=== PATIENT | male | born 1960 | race Caucasian/White ===

== ENCOUNTER 2017-07-08 16:15 | Emergency (ER) | payer OTHER ==
[~2017-07-08] VITALS: Ht 165.1 cm; Wt 65.8 kg
[~2017-07-08 16:15] MED LIST: AMOX1TAB61 PO; BUPR1FIL5 PO; CLON2TAB PO; HYDR-2678 PO; METH-37 PO; OLAN20TA3 PO; PRED20TA PO; QUET400T4 PO; RANI150T2 PO; SULF1TAB24 PO; TRAM-48 PO; VANC1.5P12 IV; Zantac; [UNRECOGNIZED DRUG - OTHER]; gabapentin; klonopin; seroquel; voltaren
[2017-07-08] MEDS ORDERED: IV NORMAL SALINE 1,000ML 1,000 ML IV ONE (16:45)
--- NOTE | 2017-07-08 16:55 | ED.ADGEN ---
Past History Past Medical History: Bipolar, Bronchitis, COPD, Diverticulitis, IBS, Schizophrenia Past Surgical History: Appendectomy, Other Alcohol Use: None Drug Use: None Adult General Chief Complaint Chief Complaint body aches, cough, chest pain HPI HPI Patient is a 57 year old male who presents with extensive intermittent cough, body aches, worsened over the last 3 days with fever of 101+. Patient did not receive a flu shot this year. Patient has not been seen by a doctor for these symptoms, he is not taking any medications at home. He's been laying around in his house, not working. History is primarily given by significant other as the patient is laying with his eyes closed and groaning but is able to listen and answers questions intermittently without distress. Review of Systems Review of Systems Constitutional: Reports fever Eyes: Denies change in visual acuity, redness, or eye pain [] HENT: Denies nasal congestion or sore throat [] Respiratory: rePorts cough Cardiovascular: Reports chest pain GI: Denies abdominal pain, nausea, vomiting, bloody stools or diarrhea [] : Denies dysuria or hematuria [] Musculoskeletal: Per history of present illness Integument: Denies rash or skin lesions [] Neurologic: Denies headache, focal weakness or sensory changes [] Current Medications Current Medications Current Medications Medications (Trade) Dose Ordered Sig/Inna Start Time Stop Time Status Last Admin Dose Admin Sodium Chloride 1,000 ml @ 1,000 mls/hr 1X ONCE 07/08/17 16:45 07/08/17 17:44 07/08/17 16:45 1,000 MLS/HR Allergies Allergies Allergies Coded Allergies Type Severity Reaction Last Updated Verified benztropine Allergy Severe sob 04/16/16 Yes olanzapine Allergy Severe sob 04/13/16 Yes quetiapine Allergy Severe sob 04/13/16 Yes haloperidol Allergy Intermediate 01/23/16 Yes hydromorphone Allergy Intermediate 01/23/16 Yes ziprasidone Allergy Intermediate 01/23/16 Yes zolpidem Allergy Intermediate 01/23/16 Yes I S O L A T I O N *CONTACT* Allergy Unknown 04/15/16 Yes Physical Exam Physical Exam Constitutional: Well developed, well nourished, ill appearing, non-toxic appearance. HENT: Normocephalic, atraumatic, bilateral external ears normal, oropharynx moist, no oral exudates, nose normal. [] Eyes: PERRLA, EOMI, conjunctiva normal, no discharge. [] Neck: Normal range of motion, no tenderness, supple, no stridor. [] Cardiovascular:Heart rate regular with regular rhythm, no murmur [] Lungs & Thorax: Bilateral breath sounds clear to auscultation, no wheeze, crackles or rhonchi Abdomen: Bowel sounds normal, soft, no tenderness, no masses, no pulsatile masses. [] Skin: Warm, dry, no rash. [] Back: No tenderness, no CVA tenderness. [] Extremities: No tenderness, no cyanosis, no clubbing, ROM intact, no edema. [] Neurologic: Alert and oriented X 3, normal motor function, normal sensory function, no focal deficits noted. [] Current Patient Data Vital Signs Vital Signs Date Time Temp Pulse Resp B/P (MAP) Pulse Ox O2 Delivery O2 Flow Rate FiO2 07/08/17 16:37 97.8 83 20 98 Room Air Lab Results Laboratory Tests Test 07/08/17 16:51 White Blood Count 14.2 x10^3/uL (4.0-11.0) H Red Blood Count 4.31 x10^6/uL (4.30-5.70) Hemoglobin 13.3 g/dL (13.0-17.5) Hematocrit 37.9 % (39.0-53.0) L Mean Corpuscular Volume 88 fL (79-100) Mean Corpuscular Hemoglobin 31 pg (25-35) Mean Corpuscular Hemoglobin Concent 35 g/dL (31-37) Red Cell Distribution Width 12.8 % (11.5-14.5) Platelet Count 227 x10^3/uL (140-400) Neutrophils (%) (Auto) 80 % (31-73) H Lymphocytes (%) (Auto) 12 % (24-48) L Monocytes (%) (Auto) 8 % (0-9) Eosinophils (%) (Auto) 0 % (0-3) Basophils (%) (Auto) 0 % (0-3) Neutrophils # (Auto) 11.4 x10^3uL (1.8-7.7) H Lymphocytes # (Auto) 1.7 x10^3/uL (1.0-4.8) Monocytes # (Auto) 1.1 x10^3/uL (0.0-1.1) Eosinophils # (Auto) 0.0 x10^3/uL (0.0-0.7) Basophils # (Auto) 0.0 x10^3/uL (0.0-0.2) Sodium Level 133 mmol/L (136-145) L Potassium Level 3.6 mmol/L (3.5-5.1) Chloride Level 97 mmol/L (98-107) L Carbon Dioxide Level 25 mmol/L (21-32) Anion Gap 11 (6-14) Blood Urea Nitrogen 4 mg/dL (8-26) L Creatinine 0.7 mg/dL (0.7-1.3) Estimated GFR (Cockcroft-Gault) 116.2 BUN/Creatinine Ratio 6 (6-20) Glucose Level 97 mg/dL (70-99) Calcium Level 8.7 mg/dL (8.5-10.1) Total Bilirubin 0.6 mg/dL (0.2-1.0) Aspartate Amino Transferase (AST) 27 U/L (15-37) Alanine Aminotransferase (ALT) 28 U/L (16-63) Alkaline Phosphatase 61 U/L (46-116) Troponin I Quantitative < 0.017 ng/mL (0-0.055) Total Protein 7.3 g/dL (6.4-8.2) Albumin 3.4 g/dL (3.4-5.0) Albumin/Globulin Ratio 0.9 (1.0-1.7) L Influenza Type A (Rapid) Negative (NEGATIVE) Influenza Type B (Rapid) Negative (NEGATIVE) EKG EKG 1655: 75 bpm, sinus, normal axis, normal intervals, no ST elevation or depression, nonischemic T waves, interpreted by me[] Radiology/Procedures Radiology/Procedures CXR 1 view: linear opacities, normal cardiac, no effusion, no bony abnormalities , interpreted by me.[] Course & Med Decision Making Course & Med Decision Making Pertinent Labs and Imaging studies reviewed. (See chart for details) Patient given IV fluids, labs, chest x-ray ordered. Labs show mild leukocytosis, no significant other abnormalities. Recommend treatment for atypical pneumonia with z-pack. Recommend fluids, close f/u with PCP, strict return precautions. Final Impression Final Impression Atypical pneumonia[] Problems: Dragon Disclaimer Dragon Disclaimer This electronic medical record was generated, in whole or in part, using a voice recognition dictation system. KEVIN LOUIS MD Jul 08, 2017 16:55
--- NOTE | 2017-07-08 17:07 | EKG ---
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
[2017-07-08 17:17] LABS: BASO % 0 % (0-3); EOS % 0 % (0-3); HEMATOCRIT 37.9 % (39.0-53.0); HEMOGLOBIN 13.3 g/dL (13.0-17.5); LYMPH # 1.7 x10^3/uL (1.0-4.8); LYMPH % 12 % (24-48); MEAN CORPUSCULAR HEMOGLOBIN 31 pg (25-35); MEAN CORPUSCULAR HGB CONC 35 g/dL (31-37); MEAN CORPUSCULAR VOLUME 88 fL (79-100); MONO # 1.1 x10^3/uL (0.0-1.1); MONO % 8 % (0-9); NEUT # 11.4 x10^3uL (1.8-7.7); NEUT % 80 % (31-73); PLATELET COUNT 227 x10^3/uL (140-400); RED BLOOD COUNT 4.31 x10^6/uL (4.30-5.70); RED CELL DISTRIBUTION WIDTH 12.8 % (11.5-14.5); WHITE BLOOD COUNT 14.2 x10^3/uL (4.0-11.0)
[2017-07-08 17:32] LABS: ALBUMIN 3.4 g/dL (3.4-5.0); ALBUMIN/GLOBULIN RATIO 0.9 (1.0-1.7); CALCIUM 8.7 mg/dL (8.5-10.1); CREATININE 0.7 mg/dL (0.7-1.3); GFR 116.2; POTASSIUM 3.6 mmol/L (3.5-5.1); TOTAL BILIRUBIN 0.6 mg/dL (0.2-1.0); TOTAL PROTEIN 7.3 g/dL (6.4-8.2)
[2017-07-08 17:33] LABS: INFLUENZA A PATIENT NEGATIVE (NEGATIVE); INFLUENZA B PATIENT NEGATIVE (NEGATIVE)
[2017-07-08] MEDS ORDERED: AZIT250T PO (17:41)
[2017-07-08] MEDS ORDERED: IBUP800T19 PO (17:41)
[2017-07-08 17:57] VITALS: BP 119/70
--- NOTE | 2017-07-09 09:54 | RAD ---
Indication: Cough and flulike symptoms. Technique: Portable AP upright chest x-ray Comparison: None Findings: Heart is normal in size. Bilateral central perihilar linear opacities noted. No focal consolidation. No pneumothorax or effusion. Visualized bony thorax within normal limits Findings: Findings may suggest bronchitis in right clinical setting.
== END 2017-07-08 17:59 | disposition home or self-care (01) ==
LOC: ER 16:15
DX: J18.8 Other pneumonia, unspecified organism (principal); J44.9 Chronic obstructive pulmonary disease, unspecified; F20.9 Schizophrenia, unspecified; K58.9 Irritable bowel syndrome, unspecified; F31.9 Bipolar disorder, unspecified; Z88.8 Allergy status to other drugs, medicaments and biological substances; Z91.041 Radiographic dye allergy status; Z88.5 Allergy status to narcotic agent
CPT/HCPCS: 36415; 71045; 80053; 84484; 85025; 87804; 93005; 96360; 99285-25; J7030

== ENCOUNTER 2017-07-12 12:30 | Emergency (ER) | payer MEDICARE, OTHER ==
[~2017-07-12] VITALS: Ht 162.6 cm; Wt 65.8 kg
[~2017-07-12 12:30] MED LIST changes: +AZIT250T PO; +IBUP800T19 PO
[2017-07-12 12:47] VITALS: BP 106/68
[2017-07-12] MEDS ORDERED: PRED20TA PO (13:14)
[2017-07-12] MEDS ORDERED: GUAI118L13 PO (13:14)
[2017-07-12] MEDS ORDERED: ALBU18HF IH (13:14)
--- NOTE | 2017-07-12 13:16 | PHYS DOC ---
General Chief Complaint: rib pain Stated Complaint: FEVER/SIDE PAIN Time Seen by MD: 12:31 Source: patient Exam Limitations: no limitations Problems: History of Present Illness Initial Comments Patient is a 57-year-old male who returns to the emergency department complaining of cough and left-sided rib pain. Patient was seen here 4 days ago for similar symptoms chest x-ray was unremarkable and the patient was placed on a Z-Rocky for atypical pneumonia. Influenza testing negative. Patient states that he's had a persistent cough shortness of breath, states he's had some chills and sweats but no measured fevers. No Tylenol or ibuprofen since early this morning on ED arrival patient is afebrile and satting 99% on room air. He also states he has a history of COPD but currently uses no aerosol treatments. Patient's primary complaint today is left lower rib pain. Patient points to his left costal margin and states the pain radiates from front to back and is worse with deep breaths and coughing as well as certain movements better with rest. He denies any trauma and on reevaluation no rashes present. ED vitals: 97.5, 96, 22, 106/68, 99% room air Timing/Duration: other Severity: severe Modifying Factors: worse with movement, improves with rest Associated Symptoms: cough, fever/chills, other Allergies: Coded Allergies: benztropine (Verified Allergy, Severe, sob, 04/16/16) olanzapine (Verified Allergy, Severe, sob, 04/13/16) quetiapine (Verified Allergy, Severe, sob, 04/13/16) haloperidol (Verified Allergy, Intermediate, 01/23/16) hydromorphone (Verified Allergy, Intermediate, 01/23/16) ziprasidone (Verified Allergy, Intermediate, 01/23/16) zolpidem (Verified Allergy, Intermediate, 01/23/16) I S O L A T I O N *CONTACT* (Verified Allergy, Unknown, 04/15/16) +MRSA nasal screen 04-13-16 Past Medical History Medical History: other (bipolar disorder, polysubstance abuse, anxiety, tobaccoism, diverticulitis, small bowel obstruction, liver laceration, COPD, schizophrenia) Surgical History: appendectomy Social History Smoker: less than 1 pack/day Alcohol: none Drugs: other (remote history of polysubstance abuse) Review of Systems Constitutional: see HPI Respiratory: see HPI, denies shortness of breath Cardiovascular: denies chest pain, denies edema, denies palpitations, denies syncope Gastrointestinal: denies abdominal pain, denies nausea, denies vomiting Musculoskeletal: see HPI Psychiatric/Neurological: see HPI, denies headache Hematologic/Lymphatic: denies blood clots, denies easy bleeding, denies easy bruising Physical Exam General Appearance: no apparent distress (disheveled, appears older than stated age) Eyes: bilateral eye normal inspection, bilateral eye PERRL, bilateral eye EOMI Ear, Nose, Throat: hearing grossly normal, normal pharynx Neck: non-tender, supple Respiratory: wheezing (faint diffuse with good air movement no respiratory distress), other (tenderness elicited along the left costal margin reproducing chief complaint, no swelling ecchymosis or rash no bony tenderness or palpable bony deformity.) Cardiovascular: normal peripheral pulses, regular rate, rhythm Gastrointestinal: non tender, soft Back: no CVA tenderness, no vertebral tenderness Extremities: non-tender, normal inspection, no pedal edema 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 I discussed onset of action of Zithromax, discussed COPD and smoking cessation. Discussed signs and symptoms to monitor as well as indications for urgent return to the department. Patient's questions were answered to his satisfaction and he expressed agreement and understanding of treatment plan. Departure Time of Disposition: 13:14 Disposition: 01 HOME, SELF-CARE Diagnosis: COPD Exac, bronchitis, chest wall pain Condition: GOOD Patient Instructions: Chest Wall Pain, [id number] Additional Instructions: Continue taking Zithromax. [id number] Tylenol and ibuprofen as needed. Prescription: Prednisone, albuterol MDI, guaifenesin with codeine syrup 80 MLs Follow-up with your doctor in 5-7 days if no improvement. Return to ED with new or changing symptoms. KERRI REDMOND DO Jul 12, 2017 13:16
== END 2017-07-12 13:25 | disposition home or self-care (01) ==
LOC: ER 12:30
DX: J44.0 Chronic obstructive pulmonary disease with (acute) lower respiratory infection (principal); J44.1 Chronic obstructive pulmonary disease with (acute) exacerbation; J20.8 Acute bronchitis due to other specified organisms; R07.81 Pleurodynia; F17.210 Nicotine dependence, cigarettes, uncomplicated; F20.9 Schizophrenia, unspecified; F31.9 Bipolar disorder, unspecified; F41.9 Anxiety disorder, unspecified; F19.10 Other psychoactive substance abuse, uncomplicated; Z88.8 Allergy status to other drugs, medicaments and biological substances; Z91.041 Radiographic dye allergy status; Z88.5 Allergy status to narcotic agent
CPT/HCPCS: 99283

== ENCOUNTER → 2017-07-27 | Outpatient (CLI) | payer MEDICARE, OTHER ==
[2017-07-12 12:47] VITALS: BP 106/68
[~2017-07-27] MED LIST changes: +ALBU18HF IH; +CONTRAST GIVEN MC PRN; +GUAI118L13 PO; +IOHEXOL 300 MG/ML 75 ML VIAL. IV ONE
--- NOTE | 2017-07-27 10:44 | RAD ---
CT of the chest with and without contrast, 07/27/2017: History: Lung mass, shortness of breath, left chest pain Multidetector imaging was performed prior to and following an IV bolus injection of iodinated contrast material as requested. There is an elongated peripheral opacity in the posterior aspect of the left upper lobe abutting the superior aspect of the oblique fissure. On coronal image 68 of series #6 it measures approximate 5.0 x 2.2 x 2.2 cm. Its margins are irregular. Patent bronchi are seen along the margins of the mass but not centrally. It demonstrates heterogeneous internal enhancement with a small lower density component present centrally. There is mild dependent atelectasis in both lungs. There are several scattered linear opacities in both lungs compatible with scars. A calcified granuloma is present in the right upper lobe. Minimal bilateral apical densities are compatible with pleural based parenchymal scarring. No pleural fluid is evident. The thoracic aorta is unremarkable. A couple of faint coronary artery calcifications are noted. There are calcified mediastinal and right hilar lymph nodes compatible with old granulomatous disease. No hilar or mediastinal adenopathy is evident. There are surgical clips in the upper abdomen. IMPRESSION: 1. Peripheral left upper lobe pulmonary mass with diagnostic considerations including a focus of pneumonitis, a pulmonary malignancy, or less likely a pulmonary infarct. 2. Mild bilateral pleural-parenchymal scarring. PQRS Compliance Statement: One or more of the following individualized dose reduction techniques were utilized for this examination: 1. Automated exposure control 2. Adjustment of the mA and/or kV according to patient size 3. Use of iterative reconstruction technique
== END | disposition home or self-care (01) ==
LOC: CT 08:57
PROVIDERS: ATTEND Family Medicine
DX: J44.1 Chronic obstructive pulmonary disease with (acute) exacerbation (principal); J98.11 Atelectasis; I25.10 Atherosclerotic heart disease of native coronary artery without angina pectoris; R91.8 Other nonspecific abnormal finding of lung field
CPT/HCPCS: 71270; Q9967

== ENCOUNTER 2017-07-29 22:07 | Emergency (ER) | payer MEDICARE ==
[~2017-07-29] VITALS: Ht 162.6 cm; Wt 68.0 kg
[~2017-07-29 22:07] MED LIST changes: -CONTRAST GIVEN MC PRN; -IOHEXOL 300 MG/ML 75 ML VIAL. IV ONE
[2017-07-29] MEDS ORDERED: LORazepam 2 MG/ML VIAL IV ONE (23:00)
[2017-07-29] MEDS ORDERED: ACETAMINOPHEN 500 MG TABLET PO ONE (23:00)
[2017-07-29] MEDS ORDERED: IOHEXOL 300 MG/ML 75 ML VIAL. IV ONE (23:00)
[2017-07-29] MEDS ORDERED: IV NORMAL SALINE 1,000ML 1,000 ML IV SCH (23:00)
[2017-07-29] MEDS ORDERED: ASPIRIN 81 MG TAB.CHEW PO ONE (23:00)
[2017-07-29 23:24] LABS: BASO # 0.1 x10^3/uL (0.0-0.2); BASO % 1 % (0-3); EOS # 0.1 x10^3/uL (0.0-0.7); EOS % 1 % (0-3); HEMATOCRIT 40.5 % (39.0-53.0); HEMOGLOBIN 13.8 g/dL (13.0-17.5); LYMPH # 1.6 x10^3/uL (1.0-4.8); LYMPH % 19 % (24-48); MEAN CORPUSCULAR HEMOGLOBIN 31 pg (25-35); MEAN CORPUSCULAR HGB CONC 34 g/dL (31-37); MEAN CORPUSCULAR VOLUME 90 fL (79-100); MONO # 0.9 x10^3/uL (0.0-1.1); MONO % 11 % (0-9); NEUT # 5.8 x10^3uL (1.8-7.7); NEUT % 69 % (31-73); PLATELET COUNT 244 x10^3/uL (140-400); RED BLOOD COUNT 4.52 x10^6/uL (4.30-5.70); RED CELL DISTRIBUTION WIDTH 14.6 % (11.5-14.5); WHITE BLOOD COUNT 8.4 x10^3/uL (4.0-11.0)
[2017-07-29 23:34] LABS: ALBUMIN 2.8 g/dL (3.4-5.0); ALBUMIN/GLOBULIN RATIO 0.7 (1.0-1.7); CALCIUM 8.2 mg/dL (8.5-10.1); CREATININE 0.8 mg/dL (0.7-1.3); GFR 99.6; POTASSIUM 4.1 mmol/L (3.5-5.1); TOTAL BILIRUBIN 0.2 mg/dL (0.2-1.0); TOTAL PROTEIN 6.9 g/dL (6.4-8.2)
[2017-07-29 23:39] LABS: BACTERIA,URINE FEW /HPF (0-FEW); BILIRUBIN,URINE NEG (NEG); CLARITY,URINE HAZY; COLOR,URINE YELLOW; GLUCOSE,URINE NEG (NEG); NITRITE,URINE NEG (NEG); UROBILINOGEN,URINE 0.2 mg/dL (0.2 mg/dL); WBC,URINE 0 /HPF (0-4)
--- NOTE | 2017-07-29 23:39 | PHYS DOC ---
General Chief Complaint: SHORTNESS OF BREATH Stated Complaint: FEVER,OXYGEN LEVEL PROBLEMS,DIFF BREATHING Time Seen by MD: 22:18 Source: patient, old records Exam Limitations: intoxication Problems: History of Present Illness Initial Comments 57-year-old male brought to the ED by his for fever and cough. states that the patient was recently diagnosed with pneumonia and is on " an antibiotic" and prednisone. She states that today he developed fever and chills symptoms appeared to worsen. Patient complains of cough and body aches and nasal congestion, states that he' s had these symptoms for the past 9 months and no one will help him. On arrival his speech is garbled and he appears to be altered on and intoxicating substance , he is inconsolable and very anxious and demanding pain control. Febrile on arrival with intermittent elevated heart rate with agitation no hypoxia or respiratory distress noted. Copious amounts of green nasal discharge noted no chest pain nausea vomiting. Patient had CTA of the chest 2 days ago revealing pneumonitis versus mass versus infarct. Patient has history of substance abuse, admits to taking methadone prior to arrival states that he hasn't had a prescribed to him for several months but he found some leftover he took for his discomfort. Timing/Duration: other Severity: severe Modifying Factors: improves with other Associated Symptoms: cough, diaphoresis, fever/chills, malaise, other Allergies: Coded Allergies: benztropine (Verified Allergy, Severe, sob, 04/16/16) olanzapine (Verified Allergy, Severe, sob, 04/13/16) quetiapine (Verified Allergy, Severe, sob, 04/13/16) haloperidol (Verified Allergy, Intermediate, 01/23/16) hydromorphone (Verified Allergy, Intermediate, 01/23/16) ziprasidone (Verified Allergy, Intermediate, 01/23/16) zolpidem (Verified Allergy, Intermediate, 01/23/16) I S O L A T I O N *CONTACT* (Verified Allergy, Unknown, 04/15/16) +MRSA nasal screen 04-13-16 Past Medical History Medical History: other (anxiety, bipolar, substance abuse, diverticulitis, small bowel obstruction, liver laceration) Surgical History: appendectomy, other Social History Smoker: cigarettes Alcohol: none Drugs: marijuana, other (opiates) Review of Systems Constitutional: see HPI EENTM: denies ear pain, nose congestion, denies throat pain Respiratory: cough, denies shortness of breath, wheezing Cardiovascular: denies chest pain, denies palpitations, denies syncope Gastrointestinal: denies abdominal pain, denies nausea, denies vomiting Musculoskeletal: back pain, denies joint swelling, muscle pain, denies neck pain Psychiatric/Neurological: see HPI, denies headache, denies numbness, denies paresthesia Hematologic/Lymphatic: denies blood clots, denies easy bleeding, denies easy bruising Physical Exam General Appearance: severe distress (anxious complaining of severe pain, appears altered medication.) Eyes: bilateral eye PERRL, bilateral eye EOMI, bilateral eye other ( conjunctivae injected bilaterally) Ear, Nose, Throat: other (thick green nasal discharge, green postnasal drip airway patent TMs normal) Neck: non-tender, full range of motion, supple Respiratory: other (decreased to the left upper lung field with faint diffuse wheezes bilaterally no respiratory distress chest nontender) Cardiovascular: normal peripheral pulses, tachycardia Gastrointestinal: non tender, soft Back: no CVA tenderness, no vertebral tenderness Extremities: non-tender, normal inspection 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 Interpreted by me. PATIENT: AMBROSIO LEACH ACCOUNT: [id number] : 1960 LOCATION: ER AGE: 57 SEX: M EXAM STATUS: REG ER ORD. PHYSICIAN: KERRI REDMOND DO REASON: cp, thoracic pain, tachycardia PROCEDURE: CT ANGIOGRAPHY CHEST CTA chest with contrast 07/29/2017 Clinical indication: Chest pain, tachycardia, shortness of breath. COMPARISON: CT chest 07/27/2017 TECHNIQUE: Multiple CTA images of the chest were obtained following the intravenous administration of Omnipaque 300. MIPS were obtained of the chest. *One or more of the following individualized dose reduction techniques were utilized for this examination: 1. Automated exposure control. 2. Adjustment of the mA and/or kV according to patient size. 3. Use of iterative reconstruction technique. FINDINGS: Heart size is normal without significant pericardial effusion. The thoracic aorta is normal in caliber. No central or major segmental pulmonary arterial filling defect. No axillary or left hilar lymphadenopathy. There is mild mediastinal and right hilar lymphadenopathy. Heel Edge Inker Machine subcarinal lymph node measures 1.4 cm short axis series 4/image 68. Heel Edge Inker Machine right hilar lymph node measures 1.7 cm series 4/image 80. There is layering retained or aspirated secretions in the lower trachea, right main stem bronchus with bilateral peribronchial and bronchiolar thickening. Mild centrilobular and paraseptal emphysema. No significant change in irregular masslike consolidation posterior left upper lobe with broad-based abutment to the major fissure measuring 3.6 x 2.0 cm series 4/image 40. Interval increase in the internal cavitary component. There is a stable subpleural noncalcified nodule in the lateral right lower lobe measuring 0.5 cm series 4/image 93. There is mild dependent atelectasis in both lungs. No pleural effusion or pneumothorax. There are no destructive osseous lesions. Limited images of the upper abdomen: Grossly unremarkable. IMPRESSION: 1. No CT evidence of pulmonary embolism. 2. Unchanged left upper lobe irregular masslike consolidation with internal cavitation. Findings may represent pneumonia with a cavitary component, however atypical etiologies including tuberculosis cannot be excluded. Malignancy also must be excluded. 3. Peribronchial and bronchiolar thickening, suggestive of bronchitis. 4. Mild emphysema. 5. Stable right lung 0.5 cm noncalcified pulmonary nodule. Follow-up CT chest is recommended. 6. Mild thoracic lymphadenopathy, indeterminate. This could be followed with the above finding. These results were discussed with Dr. Redmond of the emergency service by telephone at 12:30 AM 07/30/[address] Sancho Warner. Electronically signed by: Sancho Warner MD (07/30/2017 12:32 AM) [facility] DICTATED AND SIGNED BY: SANCHO WARNER MD DATE: 07/30/17 0017 CC: MARIBELL DUPONT MD; KERRI REDMOND DO ~ No leukocytosis, influenza B positive, urinalysis with hematuria, drug screen positive for methadone marijuana and benzodiazepines Heart rate improved normal rate almost immediately with benzodiazepine, vitals otherwise remained stable throughout ED course. Clarified with patient, no codeine allergy Patient apologetic to nursing staff for behavior and profanity on arrival, no longer anxious and feeling reassured. I discussed influenza B, abnormal CT findings including possible malignancy and tuberculosis with the patient. Denies night sweats/weight loss, states he's had negative PPD testing in past. He initially denied any recent methadone use however when confronted with drug screen result states that he found some he had been prescribed months ago and took it for today severe symptoms. I discussed the need for follow-up on Tuesday for PPD resolved as well as to discuss outpatient pulmonology evaluation for possible malignancy versus tuberculosis. Discussed signs and symptoms to monitor as well as indications for urgent return to the department. His questions were answered, and given the benefit of the doubt in addition to Tamiflu 120 mL of cough medicine with codeine prescription given as well. Impressions: Influenza B Abnormal CT as above History of polysubstance abuse Current treatment for possible pneumonia Departure Time of Disposition: 00:48 Disposition: 01 HOME, SELF-CARE Diagnosis: Influenza B, Abnormal CT, hematuria Condition: IMPROVED Patient Instructions: Influenza, Adult, [id number] Additional Instructions: Please review the patient education materials. Continue current meds. As discussed and previously known, you have and abnormal cat scan of your chest which needs follow up due to possibility of malignancy or tuberculosis. Aggressive hydration with gatorade, water. OTC tylenol and ibuprofen. Rx: Tamiflu, guaifenesin/codeine syrup A tuberculosis skin test was performed tonight, follow up with your doctor on Tuesday to review and to discuss possible further outpatient pulmonology evaluation. Discontinue marijuana abuse. Return to ED with new or changing symptoms. KERRI REDMOND DO Jul 29, 2017 23:39
[2017-07-29 23:40] LABS: SQUAMOUS EPITHELIAL CELL,UR MOD /LPF
[2017-07-29 23:42] LABS: INFLUENZA A PATIENT NEGATIVE (NEGATIVE); INFLUENZA B PATIENT POSITIVE (NEGATIVE)
[2017-07-29 23:48] LABS: BARBITURATES NEG (NEG); BENZODIAZEPINES POS (NEG); CANNABINOIDS POS (NEG); COCAINE NEG (NEG); METHADONE POS (NEG); OPIATES NEG (NEG); PHENCYCLIDINE NEG (NEG)
[2017-07-29 23:50] LABS: AMPHETAMINE/METHAMPHETAMINE NEG (NEG)
[2017-07-30] MEDS ORDERED: OSELTAMIVIR 75 MG CAPSULE PO ONE
--- NOTE | 2017-07-30 00:35 | RAD ---
CTA chest with contrast 07/29/2017 Clinical indication: Chest pain, tachycardia, shortness of breath. COMPARISON: CT chest 07/27/2017 TECHNIQUE: Multiple CTA images of the chest were obtained following the intravenous administration of Omnipaque 300. MIPS were obtained of the chest. *One or more of the following individualized dose reduction techniques were utilized for this examination: 1. Automated exposure control. 2. Adjustment of the mA and/or kV according to patient size. 3. Use of iterative reconstruction technique. FINDINGS: Heart size is normal without significant pericardial effusion. The thoracic aorta is normal in caliber. No central or major segmental pulmonary arterial filling defect. No axillary or left hilar lymphadenopathy. There is mild mediastinal and right hilar lymphadenopathy. Communications Systems Engineer subcarinal lymph node measures 1.4 cm short axis series 4/image 68. Communications Systems Engineer right hilar lymph node measures 1.7 cm series 4/image 80. There is layering retained or aspirated secretions in the lower trachea, right main stem bronchus with bilateral peribronchial and bronchiolar thickening. Mild centrilobular and paraseptal emphysema. No significant change in irregular masslike consolidation posterior left upper lobe with broad-based abutment to the major fissure measuring 3.6 x 2.0 cm series 4/image 40. Interval increase in the internal cavitary component. There is a stable subpleural noncalcified nodule in the lateral right lower lobe measuring 0.5 cm series 4/image 93. There is mild dependent atelectasis in both lungs. No pleural effusion or pneumothorax. There are no destructive osseous lesions. Limited images of the upper abdomen: Grossly unremarkable. IMPRESSION: 1. No CT evidence of pulmonary embolism. 2. Unchanged left upper lobe irregular masslike consolidation with internal cavitation. Findings may represent pneumonia with a cavitary component, however atypical etiologies including tuberculosis cannot be excluded. Malignancy also must be excluded. 3. Peribronchial and bronchiolar thickening, suggestive of bronchitis. 4. Mild emphysema. 5. Stable right lung 0.5 cm noncalcified pulmonary nodule. Follow-up CT chest is recommended. 6. Mild thoracic lymphadenopathy, indeterminate. This could be followed with the above finding. These results were discussed with Dr. Mijares of the emergency service by telephone at 12:30 AM 07/30/[address] Felice aWrner. Electronically signed by: Felice Warner MD (07/30/2017 12:32 AM) [place] [id number]
[2017-07-30] MEDS ORDERED: OSEL75CA PO (00:54)
[2017-07-30] MEDS ORDERED: guaiFENesin/CODEINE 100mg/10mg 5 ML LIQUID PO ONE (01:00)
[2017-07-30] MEDS ORDERED: GUAI118L13 PO (01:02)
[2017-07-30] MEDS ORDERED: TUBERCULIN PPD 5TUB.UNIT 0.1 ML TEST. ID ONE (03:00)
[2017-07-30 04:30] VITALS: BP 106/65
--- NOTE | 2017-07-30 06:10 | EKG ---
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
== END 2017-07-30 04:40 | disposition home or self-care (01) ==
LOC: ER 22:07
DX: J10.1 Influenza due to other identified influenza virus with other respiratory manifestations (principal); R93.1 Abnormal findings on diagnostic imaging of heart and coronary circulation; R31.9 Hematuria, unspecified; F41.9 Anxiety disorder, unspecified; J43.9 Emphysema, unspecified; F31.9 Bipolar disorder, unspecified; F17.210 Nicotine dependence, cigarettes, uncomplicated; F12.10 Cannabis abuse, uncomplicated; F11.10 Opioid abuse, uncomplicated; Z88.5 Allergy status to narcotic agent; Z88.8 Allergy status to other drugs, medicaments and biological substances; Z91.041 Radiographic dye allergy status
CPT/HCPCS: 36415; 71275; 80053; 80307; 81001; 82550; 83605; 84484; 85025; 85379; 87040; 87804; 93005; 96361; 96374; 99285; G0480; J2060; Q9967; 96360; G0479; J7030

== ENCOUNTER 2017-07-30 19:15 | Emergency (ER) | payer MEDICARE ==
[~2017-07-30] VITALS: Ht 162.6 cm; Wt 68.0 kg
[~2017-07-30 19:15] MED LIST changes: +OSEL75CA PO
[2017-07-30] MEDS ORDERED: ALBUTEROL SULFATE 2.5 MG/3 ML NEBU. NEB ONE (21:15)
[2017-07-30] MEDS ORDERED: IV NORMAL SALINE 1,000ML 1,000 ML IV SCH (21:15)
[2017-07-30] MEDS ORDERED: MORPHINE SULFATE 4 MG/ML DISP.SYRIN. IV/SQ PRN (21:15)
[2017-07-30 23:01] VITALS: BP 115/93
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
== END 2017-07-31 | disposition home or self-care (01) ==
LOC: ER 19:58
DX: J10.1 Influenza due to other identified influenza virus with other respiratory manifestations (principal); E86.1 Hypovolemia; F41.9 Anxiety disorder, unspecified; F31.9 Bipolar disorder, unspecified; F19.10 Other psychoactive substance abuse, uncomplicated; F17.210 Nicotine dependence, cigarettes, uncomplicated; F12.10 Cannabis abuse, uncomplicated; F11.10 Opioid abuse, uncomplicated; Z88.5 Allergy status to narcotic agent; Z88.8 Allergy status to other drugs, medicaments and biological substances; Z91.041 Radiographic dye allergy status
CPT/HCPCS: 94640; 96361; 96374; 99285; J2270; J7613; J7030

== ENCOUNTER → 2017-09-12 | Outpatient (CLI) | payer MEDICARE ==
--- NOTE | 2017-09-12 16:36 | RAD ---
CT of the chest without contrast, 09/12/2017: History: Follow-up infiltrate Noncontrast scans were obtained as requested. Comparison is made to a study from 07/29/2017. Previously seen dense infiltrate in the posterior aspect of the left upper lobe has partially cleared. There are only mild residual streaky opacities in this region. The appearance is compatible with resolving pneumonia. There are mild streaky opacities medially in the right middle lobe which are unchanged and are likely due to scarring. There is also minimal linear atelectasis or scarring in the lingula on the left. A calcified granuloma is present in the right upper lobe. A small peripheral triangular shaped subpleural opacity is again noted laterally in the right lower lobe on image 83 of series #2. This measures approximately 5 mm and is unchanged. There are a few other scattered linear parenchymal scars including in the apices. No new pulmonary consolidation is seen. There is no evidence of pleural fluid. There are multiple calcified mediastinal and right hilar lymph nodes compatible with old granulomatous disease. Mildly prominent mediastinal lymph nodes have regressed. The subcarinal lymph node which measured 14 mm on the previous study now measures 10 mm. There is mild calcific plaquing of the thoracic aorta and its branches. Minimal coronary artery calcifications are noted. IMPRESSION: 1. The left upper lobe consolidation has markedly regressed compatible with an inflammatory etiology. 2. Stable small right lower lobe pulmonary nodule. 3. Regression of the previously seen minimal mediastinal adenopathy. 4. Mild scattered pulmonary scars. PQRS Compliance Statement: One or more of the following individualized dose reduction techniques were utilized for this examination: 1. Automated exposure control 2. Adjustment of the mA and/or kV according to patient size 3. Use of iterative reconstruction technique
== END | disposition home or self-care (01) ==
LOC: CT 13:20
PROVIDERS: ATTEND Internal Medicine Critical Care Medicine
DX: J44.1 Chronic obstructive pulmonary disease with (acute) exacerbation (principal); J18.1 Lobar pneumonia, unspecified organism; D71 Functional disorders of polymorphonuclear neutrophils; R59.0 Localized enlarged lymph nodes; Z87.891 Personal history of nicotine dependence
CPT/HCPCS: 71250

== ENCOUNTER 2018-01-08 07:20 | Inpatient (IN) | payer MEDICARE ==
[~2018-01-08] VITALS: Ht 162.6 cm; Wt 70.8 kg
[2018-01-08] MEDS ORDERED: DICL100T PO (08:26)
[2018-01-08] MEDS ORDERED: RANI150C PO (08:26)
[2018-01-08] MEDS ORDERED: RANI150T21 PO (08:26)
[2018-01-08] MEDS ORDERED: PIP/TAZO PER PHARMACY MC PRN (08:30)
[2018-01-08] MEDS: oxyCODONE IR 5 MG TABLET PO PRN ×3 (08:57→20:03)
[2018-01-08] MEDS ORDERED: POTASSIUM CHLORIDE 20 MEQ TABLET.ER. PO ONE (09:30)
[2018-01-08 09:58] VITALS: BP 113/68
[2018-01-08] MEDS ORDERED: VANCOMYCIN 1.75 GM in IV NORMAL SALINE 500ML 500 ML IV ONE (10:00)
[2018-01-08] MEDS: VANCOMYCIN PER PHARMACY MC PRN (11:17)
[2018-01-08] MEDS: ENOXAPARIN 40 MG/0.4 ML SYRINGE. SQ SCH (11:48)
[2018-01-08] MEDS: PIPERACILLIN/TAZOBACTAM 3.375 GM in IV NORMAL SALINE 50ML 50 ML IV SCH ×3 (11:48→23:58)
[2018-01-08] MEDS: NICOTINE 21MG PATCH. TD SCH (11:48)
[2018-01-08 12:08] LABS: HEMATOCRIT 34.5 % (39.0-53.0); RED BLOOD COUNT 3.85 x10^6/uL (4.30-5.70); RED CELL DISTRIBUTION WIDTH 14.5 % (11.5-14.5); WHITE BLOOD COUNT 10.5 x10^3/uL (4.0-11.0)
[2018-01-08] MEDS: clonazePAM 1 MG TABLET PO SCH ×3 (12:14→20:03)
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
[2018-01-08 15:29] VITALS: BP 164/67
--- NOTE | 2018-01-08 17:02 | RAD ---
Left lower extremity venous Doppler dated 01/08/2018. No comparison available. Clinical data indication: Left lower extremity swelling with open wound and redness. FINDINGS: Grayscale, color-flow and spectral waveform analysis performed to include the deep venous system of the left lower extremity. There is normal compressibility, phasicity and augmentation of flow throughout. No filling defects are seen. There are enlarged lymph nodes at the left groin and upper left thigh that measure up to 10 mm short axis. IMPRESSION: 1. No evidence of left lower extremity deep vein thrombosis. 2. Lymphadenopathy at the left groin and upper left thigh, nonspecific. Electronically signed by: Jose Grayson MD (01/08/2018 4:59 PM) [facility]
[2018-01-08 19:20] VITALS: BP 105/62
[2018-01-08] MEDS: FAMOTIDINE 20 MG TABLET PO SCH (20:03)
[2018-01-08] MEDS: VANCOMYCIN 1 GM in IV NORMAL SALINE 250ML 250 ML IV SCH (20:04)
[2018-01-08] MEDS: DICLOFENAC SODIUM 25 MG TABLET.DR PO SCH (20:09)
[2018-01-08] MEDS ORDERED: NON FORMULARY ITEM (Ranitidine Hcl (Zantac) 1 TAB) PO SCH (21:00)
[2018-01-08 23:08] VITALS: BP 111/69
[2018-01-09] MEDS: oxyCODONE IR 5 MG TABLET PO PRN ×4 (00:04→20:46)
[2018-01-09] MEDS: PIPERACILLIN/TAZOBACTAM 3.375 GM in IV NORMAL SALINE 50ML 50 ML IV SCH ×3 (05:10→16:21)
[2018-01-09 05:57] VITALS: BP 101/65
[2018-01-09 06:55] LABS: ALBUMIN 2.3 g/dL (3.4-5.0); ALBUMIN/GLOBULIN RATIO 0.6 (1.0-1.7); CREATININE 0.7 mg/dL (0.7-1.3); GFR 116.2; POTASSIUM 3.8 mmol/L (3.5-5.1); TOTAL BILIRUBIN 0.3 mg/dL (0.2-1.0); TOTAL PROTEIN 5.9 g/dL (6.4-8.2)
[2018-01-09] MEDS: NICOTINE 21MG PATCH. TD SCH (07:55)
[2018-01-09] MEDS: FAMOTIDINE 20 MG TABLET PO SCH ×2 (07:55→20:44)
[2018-01-09] MEDS: VANCOMYCIN 1 GM in IV NORMAL SALINE 250ML 250 ML IV SCH ×3 (07:55→21:58)
[2018-01-09] MEDS: clonazePAM 1 MG TABLET PO SCH ×4 (07:56→20:44)
[2018-01-09] MEDS: DICLOFENAC SODIUM 25 MG TABLET.DR PO SCH ×2 (07:56→20:47)
[2018-01-09 08:25] LABS: BASO # 0.1 x10^3/uL (0.0-0.2); BASO % 1 % (0-3); EOS # 0.4 x10^3/uL (0.0-0.7); EOS % 6 % (0-3); HEMATOCRIT 34.5 % (39.0-53.0); HEMOGLOBIN 11.9 g/dL (13.0-17.5); LYMPH % 17 % (24-48); MEAN CORPUSCULAR HEMOGLOBIN 31 pg (25-35); MEAN CORPUSCULAR HGB CONC 34 g/dL (31-37); MEAN CORPUSCULAR VOLUME 91 fL (79-100); MONO # 0.8 x10^3/uL (0.0-1.1); MONO % 13 % (0-9); NEUT % 63 % (31-73); PLATELET COUNT 214 x10^3/uL (140-400); RED BLOOD COUNT 3.81 x10^6/uL (4.30-5.70); WHITE BLOOD COUNT 6.3 x10^3/uL (4.0-11.0)
[2018-01-09 11:00] VITALS: BP 92/52
--- NOTE | 2018-01-09 12:00 | PN ---
DATE: 01/09/2018 SUBJECTIVE: The patient is resting, slightly propped up in bed, in no apparent distress, sleepy, but arousable, continued to complain of pain in his left leg, although the swelling and erythema has slightly less than yesterday. Continue to have discharge from the wound in the anterior steve with a mixture of blood and purulent material. Ultrasound showed no evidence of deep vein thrombosis. PHYSICAL EXAMINATION: GENERAL: When I examined him, he looked well and was clearly in no apparent respiratory distress. No pallor, jaundice, cyanosis, or thyromegaly. No jugular venous distension. No limb edema. VITAL SIGNS: His heart rate was 60, blood pressure 101/65, temperature was 97.4, respiratory rate was 18, and oxygen saturation was 95% on room air. HEAD, EYES, EARS, NOSE, AND THROAT: Showed normocephalic, atraumatic. NECK: Supple. HEART: Showed normal first and second heart sounds with no gallop, rub, or murmur. CHEST: Clear to auscultation. No crepitation or rhonchi. ABDOMEN: Distended, soft, nontender. No guarding or rigidity. No organomegaly. All hernial orifice intact. Bowel sounds normal. NEUROLOGIC: He was sleepy, but arousable. All cranial nerves intact. He moves extremities without difficulty. His left lower extremity is definitely more swollen, erythematous with wound in the anterior steve covered with dressing, although the erythema and lymphangitis slightly much less than yesterday. His intake was 1300, no output was recorded. LABORATORY DATA: His lab work this morning showed serum sodium 135, potassium 3.8, chloride 104, bicarbonate 24, anion gap of 7, BUN 7, creatinine was 0.7, estimated GFR was 116 mL per minute, glucose 123, calcium was 8. Total bilirubin, AST, ALT elevated. Alkaline phosphatase was normal. His total protein was 5.9, albumin was 2.3. His white cell count was 6300, hemoglobin 12, hematocrit 36, MCV 91, and platelet count 214,000. ASSESSMENT: 1. Left lower extremity cellulitis with lymphangitis and left inguinal lymphadenopathy. He has also an ulcerative draining lesion in the mid steve. Plan is to continue with IV vancomycin and Zosyn. 2. Chronic obstructive pulmonary disease. 3. Nicotine dependence, heroin, cocaine, and methamphetamine abuse as well as marijuana. Continue with IV fluid, continue with IV vancomycin and Zosyn. Continue with pain management. Continue with Lovenox for DVT prophylaxis. CHARITY COBOS MD DR: LAURA/puneet JOB#: [id number] / [id number]
[2018-01-09] MEDS: ENOXAPARIN 40 MG/0.4 ML SYRINGE. SQ SCH (12:21)
[2018-01-09 15:04] VITALS: BP 107/67
[2018-01-09 19:35] VITALS: BP 103/65
[2018-01-09] MEDS: LACTOBACILLUS RHAMNOSUS GG 1 CAPSULE. PO SCH (20:44)
[2018-01-09 21:28] LABS: VANC TR 6.4 mcg/mL (10.0-20.0)
[2018-01-09] MEDS: VANCOMYCIN PER PHARMACY MC PRN (21:55)
[2018-01-09 23:43] VITALS: BP 107/69
[2018-01-10] MEDS: PIPERACILLIN/TAZOBACTAM 3.375 GM in IV NORMAL SALINE 50ML 50 ML IV SCH ×4 (00:27→17:36)
[2018-01-10 06:30] VITALS: BP 113/72
[2018-01-10] MEDS: VANCOMYCIN 1 GM in IV NORMAL SALINE 250ML 250 ML IV SCH ×3 (06:30→22:17)
[2018-01-10] MEDS: LACTOBACILLUS RHAMNOSUS GG 1 CAPSULE. PO SCH ×2 (07:53→21:11)
[2018-01-10] MEDS: DICLOFENAC SODIUM 25 MG TABLET.DR PO SCH ×2 (07:53→21:11)
[2018-01-10] MEDS: FAMOTIDINE 20 MG TABLET PO SCH ×2 (07:53→21:11)
[2018-01-10] MEDS: clonazePAM 1 MG TABLET PO SCH ×4 (07:53→21:11)
[2018-01-10] MEDS: NICOTINE 21MG PATCH. TD SCH (07:54)
[2018-01-10] MEDS: oxyCODONE IR 5 MG TABLET PO PRN ×2 (07:58→16:54)
[2018-01-10 09:02] LABS: BASO # 0.1 x10^3/uL (0.0-0.2); BASO % 1 % (0-3); EOS # 0.3 x10^3/uL (0.0-0.7); EOS % 6 % (0-3); HEMATOCRIT 37.5 % (39.0-53.0); LYMPH # 1.3 x10^3/uL (1.0-4.8); LYMPH % 22 % (24-48); MEAN CORPUSCULAR HEMOGLOBIN 31 pg (25-35); MEAN CORPUSCULAR HGB CONC 35 g/dL (31-37); MEAN CORPUSCULAR VOLUME 90 fL (79-100); MONO # 0.6 x10^3/uL (0.0-1.1); MONO % 9 % (0-9); NEUT # 3.7 x10^3uL (1.8-7.7); NEUT % 62 % (31-73); PLATELET COUNT 252 x10^3/uL (140-400); RED BLOOD COUNT 4.17 x10^6/uL (4.30-5.70); RED CELL DISTRIBUTION WIDTH 15.2 % (11.5-14.5)
[2018-01-10 12:17] VITALS: BP 94/59
[2018-01-10 12:29] LABS: ALBUMIN 2.3 g/dL (3.4-5.0); ALBUMIN/GLOBULIN RATIO 0.6 (1.0-1.7); CALCIUM 8.3 mg/dL (8.5-10.1); CREATININE 0.8 mg/dL (0.7-1.3); GFR 99.6; POTASSIUM 3.9 mmol/L (3.5-5.1); TOTAL BILIRUBIN 0.4 mg/dL (0.2-1.0); TOTAL PROTEIN 6.1 g/dL (6.4-8.2)
[2018-01-10] MEDS: ENOXAPARIN 40 MG/0.4 ML SYRINGE. SQ SCH (13:08)
[2018-01-10 19:00] VITALS: BP 125/62
--- NOTE | 2018-01-10 20:51 | PN ---
DATE: 01/10/2018 SUBJECTIVE: The patient is resting, slightly propped up, sleeping comfortably, in no apparent respiratory distress. His swelling and erythema are largely subsiding. PHYSICAL EXAMINATION: GENERAL: When I examined him, he looked well and was clearly in no apparent respiratory distress. No pallor, jaundice, cyanosis, or thyromegaly. No jugular venous distension. No limb edema. VITAL SIGNS: His heart rate was 68, blood pressure was 113/72, temperature was 97.4, respiratory rate was 16, and oxygen saturation was 93% on room air. HEAD, EYES, EARS, NOSE AND THROAT: Showed normocephalic, atraumatic. NECK: Supple. HEART: Showed normal first and second heart sounds with no gallop, rub or murmur. CHEST: Clear to auscultation. No crepitation or rhonchi. ABDOMEN: Distended, soft, nontender. NEUROLOGIC: He was sleepy, but arousable. Cranial nerves are intact. He moves extremities without difficulty. His left leg swelling and erythema are subsiding. He was seen by the wound care team and he was started on Aquacel with foam dressing to change every other day or p.r.n. if saturated. LABORATORY DATA: His lab work this morning showed that his white cell count was 6000, hemoglobin 13, hematocrit 37, MCV 90 and platelet count of 252,000. ASSESSMENT: 1. Left lower extremity cellulitis with lymphangitis and left inguinal lymphadenopathy. 2. He has also ulcerative draining lesion in the mid steve. 3. Chronic obstructive pulmonary disease. 4. Nicotine dependence, heroin, cocaine and methamphetamine abuse as well as marijuana abuse. PLAN: To continue with IV vancomycin and Zosyn. Continue with Lovenox for DVT prophylaxis. Continue with pain management. We will place a PICC line and await the result of the culture and sensitivity, and hopefully we can switch him to one IV antibiotic and oral Augmentin and can be discharged home with home health. CHARITY COBOS MD DR: LAURA/puneet JOB#: [id number] / [id number]
[2018-01-10 21:37] LABS: VANC TR 11.7 mcg/mL (10.0-20.0)
[2018-01-10] MEDS: VANCOMYCIN PER PHARMACY MC PRN (21:56)
[2018-01-10 22:25] VITALS: BP 97/59
[2018-01-11] MEDS: PIPERACILLIN/TAZOBACTAM 3.375 GM in IV NORMAL SALINE 50ML 50 ML IV SCH ×3 (00:34→11:37)
[2018-01-11] MEDS: oxyCODONE IR 5 MG TABLET PO PRN ×3 (00:57→11:37)
[2018-01-11 05:52] VITALS: BP 120/62
[2018-01-11 06:15] LABS: HEMATOCRIT 37.1 % (39.0-53.0); HEMOGLOBIN 12.8 g/dL (13.0-17.5); RED BLOOD COUNT 4.14 x10^6/uL (4.30-5.70); RED CELL DISTRIBUTION WIDTH 15.2 % (11.5-14.5); WHITE BLOOD COUNT 5.1 x10^3/uL (4.0-11.0)
[2018-01-11 06:26] LABS: ALBUMIN 2.3 g/dL (3.4-5.0); ALBUMIN/GLOBULIN RATIO 0.6 (1.0-1.7); CALCIUM 8.3 mg/dL (8.5-10.1); CREATININE 0.7 mg/dL (0.7-1.3); GFR 116.2; POTASSIUM 4.4 mmol/L (3.5-5.1); TOTAL BILIRUBIN 0.4 mg/dL (0.2-1.0); TOTAL PROTEIN 6.1 g/dL (6.4-8.2)
[2018-01-11] MEDS: VANCOMYCIN 1 GM in IV NORMAL SALINE 250ML 250 ML IV SCH (06:41)
[2018-01-11] MEDS: NICOTINE 21MG PATCH. TD SCH (07:28)
[2018-01-11] MEDS: FAMOTIDINE 20 MG TABLET PO SCH (08:03)
[2018-01-11] MEDS: clonazePAM 1 MG TABLET PO SCH (08:04)
[2018-01-11] MEDS: DICLOFENAC SODIUM 25 MG TABLET.DR PO SCH (08:04)
[2018-01-11] MEDS: LACTOBACILLUS RHAMNOSUS GG 1 CAPSULE. PO SCH (08:05)
[2018-01-11 10:34] VITALS: BP 102/55
[2018-01-11] MEDS ORDERED: CLIN150C14 PO (14:07)
[2018-01-11] MEDS ORDERED: OXYC5CAP PO (14:19)
[2018-01-11] MEDS ORDERED: CLINDAMYCIN HCL 150 MG CAPSULE PO SCH (15:00)
--- NOTE | 2018-01-11 19:36 | DS ---
DATE OF DISCHARGE: 01/11/2018 HOSPITAL COURSE: The patient is a 57-year-old male patient, who was admitted with marked swelling, redness, pain and also to have draining lesion on the anterior aspect of the left steve. He has also enlarged inguinal lymph node and lymphangitis extending to the medial aspect of the left thigh. He was seen initially at [facility] where apparently culture was taken from the wound and the patient was to have no bed, so the patient was transferred to our hospital and was started on IV vancomycin and Zosyn, pending the culture and sensitivity. We did the Doppler ultrasound. His left lower extremity was markedly swollen, tender; however, there is no evidence of DVT. His redness and swelling has gradually resolved as eventually the culture from the wound taken at [facility], grew methicillin-resistant Staphylococcus aureus, sensitive to vancomycin, so we discontinued the Zosyn. He was discharged home to continue treatment with clindamycin 450 mg 3 times a day. PHYSICAL EXAMINATION: GENERAL: When I saw him this afternoon, he looked well and was clearly in no apparent respiratory distress, pale, but no jaundice, cyanosis, or thyromegaly. No jugular venous distension. No limb edema. VITAL SIGNS: His heart rate was 62, blood pressure was 102/65, temperature was 97.7, respiratory rate 20, and oxygen saturation was 94%. HEAD, EYES, EARS, NOSE AND THROAT: Showed normocephalic and atraumatic. NECK: Supple. HEART: Showed normal first and second sounds. No gallop, rub or murmur. CHEST: Clear to auscultation. No crepitation or rhonchi. ABDOMEN: Distended, soft, nontender. No guarding or rigidity. No organomegaly. Hernial orifice intact. Bowel sounds normal. NEUROLOGIC: He was awake, alert, responding appropriately. EXTREMITIES: Intact. He moves extremities without difficulty. Left lower extremity swelling has largely subsided, although the erythema is still not completely resolved. The draining the wound on the anterior aspect of the left steve is covered with dressing. LABORATORY DATA: Showed a white cell count 5100, hemoglobin 12.8, hematocrit 37, MCV 90 and platelet count 262,000. His chemistry showed a serum sodium 140, potassium 4.4, chloride 106, bicarbonate 27, anion gap of 7, BUN 8, creatinine 0.7, estimated GFR was 116 mL per minute. His glucose was 86. Total calcium was 8.3. Total bilirubin, AST, ALT were elevated. Alkaline phosphatase was normal. Total protein is 6.1 and albumin is 2.3. Toxic screen showed that vancomycin trough level was 11.7, which is well within therapeutic range. His nasal screen for MRSA by PCR was negative. DISCHARGE MEDICATIONS: He was discharged home to continue on clindamycin 450 mg 3 times a day for 7 days, clonazepam 2 mg 4 times a day, ranitidine 150 mg twice a day. FINAL DISCHARGE DIAGNOSES: 1. Left lower extremity cellulitis with lymphangitis and left inguinal lymphadenopathy. He also has an ulcerative draining lesion in the mid steve. The erythema, swelling and lymphangitis are largely subsided. The wound is still covered with dressing and improving. 2. Chronic obstructive pulmonary disease. 3. Nicotine dependence. 4. Heroin, cocaine and amphetamine abuse as well as marijuana. CHARITY COBOS MD DR: LAURA/puneet JOB#: [id number] / [id number]
== END 2018-01-11 14:33 | disposition home health service (06) | DRG 602 ==
LOC: 1 SOUTH 08:07
PROVIDERS: ADMIT Internal Medicine; ATTEND Internal Medicine
DX: L03.116 Cellulitis of left lower limb (principal); E43 Unspecified severe protein-calorie malnutrition; F12.10 Cannabis abuse, uncomplicated; M19.90 Unspecified osteoarthritis, unspecified site; F11.10 Opioid abuse, uncomplicated; F14.10 Cocaine abuse, uncomplicated; F15.10 Other stimulant abuse, uncomplicated; R59.0 Localized enlarged lymph nodes; F17.210 Nicotine dependence, cigarettes, uncomplicated; F25.9 Schizoaffective disorder, unspecified; F31.9 Bipolar disorder, unspecified; J44.9 Chronic obstructive pulmonary disease, unspecified; Z80.8 Family history of malignant neoplasm of other organs or systems; Z81.1 Family history of alcohol abuse and dependence; Z82.5 Family history of asthma and other chronic lower respiratory diseases; Z88.5 Allergy status to narcotic agent; Z88.8 Allergy status to other drugs, medicaments and biological substances; Z90.49 Acquired absence of other specified parts of digestive tract
CPT/HCPCS: 36415; 80053; 80202; 82947; 85025; 85027; 87071; 87075; 87641; 93971; J1650; J2543; J3370; J7040; J7050

== ENCOUNTER → 2019-07-16 | Outpatient (CLI) | payer MEDICARE, MEDICAID ==
[~2019-07-16] MED LIST changes: -ALBU18HF IH; +ALBU2.5V8 IH; +CLIN150C14 PO; +DICL100T PO; +OXYC5CAP PO; +RANI-376 PO; +RANI150C PO
[2019-07-16 10:20] LABS: BASO # 0.1 x10^3/uL (0.0-0.2); BASO % 1 % (0-3); EOS # 0.2 x10^3/uL (0.0-0.7); EOS % 3 % (0-3); HEMATOCRIT 42.7 % (39.0-53.0); HEMOGLOBIN 14.2 g/dL (13.0-17.5); LYMPH # 1.9 x10^3/uL (1.0-4.8); LYMPH % 24 % (24-48); MEAN CORPUSCULAR HEMOGLOBIN 31 pg (25-35); MEAN CORPUSCULAR HGB CONC 33 g/dL (31-37); MEAN CORPUSCULAR VOLUME 92 fL (79-100); MONO # 0.8 x10^3/uL (0.0-1.1); MONO % 10 % (0-9); NEUT # 5.1 x10^3uL (1.8-7.7); NEUT % 63 % (31-73); PLATELET COUNT 256 x10^3/uL (140-400); RED BLOOD COUNT 4.64 x10^6/uL (4.30-5.70); RED CELL DISTRIBUTION WIDTH 14.5 % (11.5-14.5); WHITE BLOOD COUNT 8.1 x10^3/uL (4.0-11.0)
[2019-07-16 10:33] LABS: ALBUMIN 3.3 g/dL (3.4-5.0); ALBUMIN/GLOBULIN RATIO 0.8 (1.0-1.7); CALCIUM 8.5 mg/dL (8.5-10.1); CREATININE 0.8 mg/dL (0.7-1.3); GFR 98.9; POTASSIUM 3.7 mmol/L (3.5-5.1); TOTAL BILIRUBIN 0.4 mg/dL (0.2-1.0); TOTAL PROTEIN 7.3 g/dL (6.4-8.2)
== END | disposition home or self-care (01) ==
LOC: PMG 09:07
PROVIDERS: ATTEND Family Medicine
DX: F41.9 Anxiety disorder, unspecified (principal); J44.9 Chronic obstructive pulmonary disease, unspecified; M25.522 Pain in left elbow; R10.9 Unspecified abdominal pain; K21.9 Gastro-esophageal reflux disease without esophagitis; F17.210 Nicotine dependence, cigarettes, uncomplicated; Z68.24 Body mass index [BMI] 24.0-24.9, adult; Z79.899 Other long term (current) drug therapy
CPT/HCPCS: 36415; 80053; 80061; 85025

== ENCOUNTER → 2019-07-16 | Outpatient (CLI) | payer MEDICARE ==
--- NOTE | 2019-07-16 13:41 | RAD ---
ELBOW LEFT 2V DATE: 07/16/2019 12:00 AM INDICATION: Elbow pain COMPARISON: None. FINDINGS: Bones: There is no evidence of acute fracture or dislocation. Joints: The joint spaces are normal. There is no joint effusion. Miscellaneous: None. IMPRESSION: No acute osseous abnormality Electronically signed by: Nicholas Mendoza MD (07/16/2019 1:38 PM) [id number]
== END | disposition home or self-care (01) ==
LOC: PMG 09:20
PROVIDERS: ATTEND Family Medicine
DX: M25.522 Pain in left elbow (principal)
CPT/HCPCS: 73070

== ENCOUNTER → 2019-08-17 | Outpatient (CLI) | payer MEDICARE, MEDICAID ==
[~2019-08-17] MED LIST changes: +IOHEXOL 240 MG/ML 50ML VIAL. ONE
[2019-08-17] MEDS: IOHEXOL 300 MG/ML 75 ML VIAL. IV ONE ×2 (12:15→12:56)
--- NOTE | 2019-08-17 16:45 | RAD ---
EXAM: CT Abdomen and Pelvis without IV contrast INDICATION: Abdominal pain TECHNIQUE: Multi-detector row CT images were acquired from the lung bases through the abdomen and pelvis without the use of IV contrast. Sagittal and coronal images were acquired from the transaxial data. All CT scans performed at this facility utilize dose optimization techniques as appropriate to the exam, including the following: Automated exposure control and adjustment of the mA and/or KV according to patient size (this includes techniques or standardized protocols for targeted exams where dose is indication/reason for exam). ORAL CONTRAST: Administered. COMPARISON: None FINDINGS: The absence of IV contrast limits evaluation of soft tissue pathology. LOWER CHEST: Parenchymal scarring in the right middle lobe is present, abutting the pleura. LIVER: Dense material near the junction between the right and left hepatic lobes near the diaphragm are suggestive of previous embolic therapy. BILIARY SYSTEM: Gallbladder is unremarkable. Bile ducts are not dilated. PANCREAS: Unremarkable SPLEEN: Unremarkable ADRENALS: Unremarkable KIDNEYS & URETERS: Unremarkable BLADDER: Diffuse urinary bladder wall thickening is nonspecific. It is somewhat incompletely distended REPRODUCTIVE ORGANS: The prostate gland measures 4 cm in transverse diameter. GASTROINTESTINAL: There are radiopaque foreign bodies in the mesentery compatible with surgical clips, implying previous bowel surgery.. The Stomach, small bowel, and colon are otherwise unremarkable. The appendix is normal. MESENTERY/PERITONEUM/RETROPERITONEUM: Unremarkable VASCULAR: Extensive infrarenal abdominal aortic calcifications without aneurysmal dilation. LYMPH NODES: No adenopathy OSSEOUS & SOFT TISSUES: Posterior decompression and surgical changes at L5 with jensen and pedicle screw construct fusion spanning L4-S1 on the right and L5-S1 on the left are noted. Interbody fusion at L5-S1 is present. The right L4 screw approaches the L3-L4 disc space anteriorly with exuberant subchondral cyst cyst formation and sclerosis is present along with marked disc space narrowing and vacuum phenomenon anteriorly. The left-sided L5 pedicle screw also approaches the superior endplate but is not associated with as conspicuous disc degenerative changes as seen at L3-L4. IMPRESSION: No specific findings to explain abdominal pain on noncontrast abdomen and pelvis CT Electronically signed by: Alyssa Hsu MD (08/17/2019 4:42 PM) [id number]
== END | disposition home or self-care (01) ==
LOC: CT 11:06
PROVIDERS: ATTEND Family Medicine
DX: T18.8XXA Foreign body in other parts of alimentary tract, initial encounter (principal); J98.4 Other disorders of lung; I70.0 Atherosclerosis of aorta; N32.89 Other specified disorders of bladder; M53.86 Other specified dorsopathies, lumbar region; M48.061 Spinal stenosis, lumbar region without neurogenic claudication; X58.XXXA Exposure to other specified factors, initial encounter; Y93.89 Activity, other specified; Y92.89 Other specified places as the place of occurrence of the external cause
CPT/HCPCS: 74176; Q9967

== ENCOUNTER → 2020-01-04 | Outpatient (CLI) | payer MEDICARE, MEDICAID ==
[~2020-01-04] MED LIST changes: -IOHEXOL 240 MG/ML 50ML VIAL. ONE
--- NOTE | 2020-01-04 16:15 | RAD ---
EXAM: CT Chest without IV contrast INDICATION: Reason: SOA ON EXERTION / Spl. Instructions: / History: TECHNIQUE: Multi-detector row CT images were acquired from the thoracic inlet through the upper abdomen without the use of IV contrast. Sagittal and coronal images were acquired from the transaxial data. All CT scans performed at this facility utilize dose optimization techniques as appropriate to the exam, including the following: Automated exposure control and adjustment of the mA and/or KV according to patient size (this includes techniques or standardized protocols for targeted exams where dose is indication/reason for exam). COMPARISON: Abdomen pelvis CT with IV contrast of 08/17/2019 FINDINGS: The absence of IV contrast limits evaluation of soft tissue pathology. CARDIOVASCULAR: Unremarkable MEDIASTINUM & PARVEZ: A few nodules along the lumen of the trachea and left mainstem bronchus are present. Calcified mediastinal and right hilar lymph nodes are present. LUNGS: Patchy groundglass attenuation in the bilateral lower lobes are present. PLEURAL SPACE: No pleural effusions or pneumothorax. OSSEOUS & SOFT TISSUE: Unremarkable ABDOMEN: Linear calcification in the liver could reflect sequelae of previous embolic therapeutic material. IMPRESSION: Lower lobe predominant patchy groundglass attenuation is nonspecific. Patient does have evidence of previous granulomatous disease and possible polyps in the tracheobronchial tree. Query tracheobronchial papillomatosis. Electronically signed by: Alyssa Hsu MD (01/04/2020 4:12 PM) [id number]
== END | disposition home or self-care (01) ==
LOC: CT 08:02
PROVIDERS: ATTEND Family Medicine
DX: R06.02 Shortness of breath (principal); J98.09 Other diseases of bronchus, not elsewhere classified
CPT/HCPCS: 71250

== ENCOUNTER → 2020-07-11 | Outpatient (CLI) | payer OTHER, MEDICAID ==
[~2020-07-11] MED LIST changes: -CLIN150C14 PO; +CLIN150C15 PO
--- NOTE | 2020-07-11 15:03 | RAD ---
PQRS Compliance Statement: One or more of the following individualized dose reduction techniques were utilized for this examinat ion: 1. Automated exposure control 2. Adjustment of the mA and/or kV according to patient size 3. Use of iterative reconstruction technique CT ABDOMEN W/O CONTRAST Clinical Indication: Reason: GENERALIZED ABDOMINAL PAIN Comparison: CT abdomen and pelvis without contrast August 17, 2019. TECHNIQUE: Helical CT imaging of the abdomen is performed without IV contrast. Findings: Evaluation of solid organs and bowel is limited without oral and IV contrast, decreasing sensitivity for detection of pathology. There is atelectasis and/or scarring in the bilateral lung bases. Cardiac size is normal. There are surgical clips in the upper abdomen. Calcified granulomas in the spleen. The liver is homog eneous. Gallbladder is contracted. No obvious abnormality the pancreas. Adrenal glands are normal. Ab dominal aorta caliber is normal, moderate atherosclerotic calcification distally. There is no renal c alculus. There is no hydronephrosis. There is no obvious abnormality of the stomach. There is heterogeneous fluid in the stomach. There is no overtly dilated small bowel. Visualized colon contains stool. There is no colon wall thickening. There is no obvious abdominal adenopathy. No free fluid or free air is identified. Partially seen there is posterior fusion of L4-S1. There is interbody spacer of L5/S1. There are adva nced reactive endplate changes of L3/L4. IMPRESSION: 1. Moderate atelectasis in the bilateral lung bases. 2. No acute abdominal abnormality. 3. Moderate colon stool volume, correlate for constipation. Electronically signed by: Brett Feliciano MD (07/11/2020 3:01 PM) [id number]
== END ==
LOC: CT 10:03
PROVIDERS: ATTEND Family Medicine
DX: R10.84 Generalized abdominal pain (principal); J98.11 Atelectasis
CPT/HCPCS: 74150

== ENCOUNTER 2020-08-25 21:15 | Emergency (ER) | payer OTHER, MEDICAID ==
[~2020-08-25] VITALS: Ht 162.6 cm; Wt 69.0 kg
[2020-08-25 21:15] VITALS: BP 123/75
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
== END 2020-08-25 21:24 | disposition left against medical advice (07) ==
LOC: ER 21:15
DX: T40.1X1A Poisoning by heroin, accidental (unintentional), initial encounter (principal); F31.9 Bipolar disorder, unspecified; J44.9 Chronic obstructive pulmonary disease, unspecified; K58.9 Irritable bowel syndrome, unspecified; F20.9 Schizophrenia, unspecified; Z88.8 Allergy status to other drugs, medicaments and biological substances; Y92.89 Other specified places as the place of occurrence of the external cause
CPT/HCPCS: 99283

== ENCOUNTER 2020-11-22 14:31 | Emergency (ER) | payer MEDICARE, MEDICAID ==
[~2020-11-22] VITALS: Ht 170.2 cm; Wt 68.0 kg
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
[2020-11-22] MEDS ORDERED: IV NORMAL SALINE 1,000ML 1,000 ML IV ONE ×2 (15:15→15:45)
[2020-11-22 15:48] LABS: BASO % 0 % (0-3); EOS % 0 % (0-3); HEMOGLOBIN 13.6 g/dL (13.0-17.5); LYMPH # 1.3 x10^3/uL (1.0-4.8); LYMPH % 13 % (24-48); MEAN CORPUSCULAR HEMOGLOBIN 31 pg (25-35); MEAN CORPUSCULAR HGB CONC 34 g/dL (31-37); MEAN CORPUSCULAR VOLUME 91 fL (79-100); MONO # 0.7 x10^3/uL (0.0-1.1); MONO % 8 % (0-9); NEUT # 7.6 x10^3uL (1.8-7.7); NEUT % 79 % (31-73); PLATELET COUNT 223 x10^3/uL (140-400); RED BLOOD COUNT 4.41 x10^6/uL (4.30-5.70); RED CELL DISTRIBUTION WIDTH 13.9 % (11.5-14.5); WHITE BLOOD COUNT 9.7 x10^3/uL (4.0-11.0)
[2020-11-22 15:57] LABS: CALCIUM 8.7 mg/dL (8.5-10.1); CREATININE 1.1 mg/dL (0.7-1.3); GFR 68.3; POTASSIUM 3.6 mmol/L (3.5-5.1)
[2020-11-22 16:01] LABS: ACETAMIN < 2.0 mcg/mL (10-30); ETHANOL < 10 mg/dL (0-10); SALIC < 2.8 mg/dL (2.8-20.0)
[2020-11-22 16:04] LABS: ALBUMIN 3.4 g/dL (3.4-5.0); ALBUMIN/GLOBULIN RATIO 0.9 (1.0-1.7); TOTAL BILIRUBIN 0.8 mg/dL (0.2-1.0); TOTAL PROTEIN 7.2 g/dL (6.4-8.2)
--- NOTE | 2020-11-22 16:52 | EKG ---
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
[2020-11-22] MEDS ORDERED: NALOXONE 2 MG/2 ML DISP.SYRIN. IV ONE (17:45)
[2020-11-23 06:54] VITALS: BP 124/67
== END 2020-11-22 18:00 | disposition home or self-care (01) ==
LOC: ER 14:31
DX: T50.7X1A Poisoning by analeptics and opioid receptor antagonists, accidental (unintentional), initial encounter (principal); F31.9 Bipolar disorder, unspecified; J44.9 Chronic obstructive pulmonary disease, unspecified; Z88.6 Allergy status to analgesic agent; Z88.8 Allergy status to other drugs, medicaments and biological substances; Y92.9 Unspecified place or not applicable
CPT/HCPCS: 36415; 80053; 80329; 84484; 85025; 93005; 96360; 96361; 99284; G0480; J7030

== ENCOUNTER 2020-12-09 12:33 | Emergency (ER) | payer MEDICAID, MEDICARE, OTHER ==
[~2020-12-09] VITALS: Ht 170.2 cm; Wt 68.0 kg
[2020-12-09] MEDS ORDERED: NALOXONE 0.4 MG/ML VIAL. IV ONE (13:00)
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
[2020-12-09] MEDS ORDERED: NALOXONE 2 MG/2 ML DISP.SYRIN. ONE (13:28)
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
[2020-12-09 15:40] VITALS: BP 103/62
== END 2020-12-09 15:40 | disposition home or self-care (01) ==
LOC: ER 12:33
DX: Z04.1 Encounter for examination and observation following transport accident (principal); F41.9 Anxiety disorder, unspecified; Z88.8 Allergy status to other drugs, medicaments and biological substances; Z88.5 Allergy status to narcotic agent; V98.8XXA Other specified transport accidents, initial encounter; Y93.89 Activity, other specified; Y92.89 Other specified places as the place of occurrence of the external cause; Y99.8 Other external cause status
CPT/HCPCS: 70450; 72125; 72192; 96374; 99285; J2310

== ENCOUNTER 2021-04-21 01:17 | Emergency (ER) | payer OTHER ==
[~2021-04-21] VITALS: Ht 165.1 cm; Wt 65.0 kg
[~2021-04-21 01:17] MED LIST changes: -CLIN150C15 PO; +CLIN150C16 PO
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
[2021-04-21] MEDS ORDERED: ONDANSETRON PF 4 MG/2 ML VIAL. ONE (01:23)
[2021-04-21] MEDS ORDERED: PROCHLORPERAZINE 10 MG/2 ML VIAL. IM ONE (01:30)
[2021-04-21] MEDS ORDERED: ONDANSETRON PF 4 MG/2 ML VIAL. IVP ONE (01:30)
[2021-04-21] MEDS ORDERED: FAMOTIDINE 20 MG/2 ML VIAL IVP ONE (01:30)
[2021-04-21] MEDS ORDERED: diphenhydrAMINE 50 MG/ML VIAL IV ONE (01:30)
[2021-04-21] MEDS ORDERED: IV RINGERS SOLUTION,LACTATED 1,000 ML IV SCH (01:30)
[2021-04-21] MEDS ORDERED: PROCHLORPERAZINE 10 MG/2 ML VIAL. IV ONE (02:30)
[2021-04-21 02:43] LABS: BASO # 0.1 x10^3/uL (0.0-0.2); BASO % 1 % (0-3); EOS % 0 % (0-3); HEMOGLOBIN 14.6 g/dL (13.0-17.5); LYMPH # 1.9 x10^3/uL (1.0-4.8); LYMPH % 16 % (24-48); MEAN CORPUSCULAR HEMOGLOBIN 31 pg (25-35); MEAN CORPUSCULAR HGB CONC 34 g/dL (31-37); MEAN CORPUSCULAR VOLUME 90 fL (79-100); MONO # 0.7 x10^3/uL (0.0-1.1); MONO % 6 % (0-9); NEUT # 9.3 x10^3uL (1.8-7.7); NEUT % 77 % (31-73); PLATELET COUNT 251 x10^3/uL (140-400); RED BLOOD COUNT 4.79 x10^6/uL (4.30-5.70); RED CELL DISTRIBUTION WIDTH 13.4 % (11.5-14.5)
[2021-04-21 02:50] LABS: CALCIUM 9.3 mg/dL (8.5-10.1); CREATININE 0.9 mg/dL (0.7-1.3); GFR 85.8; POTASSIUM 3.4 mmol/L (3.5-5.1)
[2021-04-21 02:59] LABS: ALBUMIN 3.7 g/dL (3.4-5.0); DIRECT BILIRUBIN 0.3 mg/dL (0.0-0.2); TOTAL PROTEIN 7.4 g/dL (6.4-8.2)
--- NOTE | 2021-04-21 03:10 | RAD ---
CT Head W/O Contrast: History: Reason: head injury - ETOH, Nausea Vomiting / Spl. Instructions: / History: Comparison: none Axial images were obtained without contrast. The ortega and white matter appears normal and symmetrical for the patients age. There is no mass effe ct, extraaxial fluid collections or hydrocephalus. There is no gross bleed. There is no focal loss of ortega-white matter distinction to suggest acute ischemia, i.e. stroke. Impression: No acute findings. End impression CT C-Spine without contrast: Clinical History: Reason: head injury - ETOH, Nausea Vomiting / Spl. Instructions: / History: Technique: Axial helical images of the cervical spine were obtained without contrast, axial coronal and sagittal reconstruction was performed. Findings: There is no loss of vertebral body stature. There is no prevertebral soft tissue swelling. The vert ebral bodies are well aligned. There is mild reversal of the normal cervical lordosis which can be p ositional or could be chronic. The C1-C2 relationship is normal. The visualized osseous structures ap pear normal. Evaluation of the central canal is limited without contrast. There is multiple posterio r disc bulges resulting in flattening of the thecal sac. There does not appear to be gross flattening of the cervical cord. There is moderate narrowing of multiple neuroforamen. Impression: No acute findings. Clinical correlation suggested. PQRS Compliance Statement: One or more of the following individualized dose reduction techniques were utilized for this examinat ion: 1. Automated exposure control 2. Adjustment of the mA and/or kV according to patient size 3. Use of iterative reconstruction technique Electronically signed by: Parish Garza III, MD (04/21/2021 3:08 AM) [facility]
--- NOTE | 2021-04-21 03:14 | RAD ---
XR ABDOMEN COMP ACUTE Clinical History: Reason: nv, pain / Spl. Instructions: / History: Technique: AP view of the chest was obtained at 04/21/2021 2:35 AM. Comparison: None. Findings: There is right perihilar and left basilar linear opacities in the lungs. There is air throughout portions of the colon and there is a suggestion of mild thumbprinting. There is a paucity of air within the left colon. There is a paucity small bowel gas. There is been prior fu yoel laminectomy of the lower lumbar spine. There is no free fluid. Impression: 1. Pulmonary infiltrates likely discoid atelectasis. 2. Nonobstructive bowel gas pattern. There is suggestion of thumbprinting suggesting bowel wall edema in the colon and there is a paucity of bowel gas in the left which could be secondary to a left-side d colitis. Electronically signed by: Parish Garza III, MD (04/21/2021 3:12 AM) [facility]
--- NOTE | 2021-04-21 03:36 | EKG ---
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
[2021-04-21] MEDS ORDERED: IOHEXOL 300 MG/ML 75 ML VIAL. IV ONE (03:45)
[2021-04-21] MEDS ORDERED: IOHEXOL 240 MG/ML 50ML VIAL. PO ONE (03:45)
[2021-04-21] MEDS ORDERED: IV RINGERS SOLUTION,LACTATED 1,000 ML IV ONE (03:45)
[2021-04-21] MEDS ORDERED: CONTRAST GIVEN. MC PRN (03:45)
[2021-04-21 04:04] LABS: INFLUENZA A PATIENT NEGATIVE (NEGATIVE); INFLUENZA B PATIENT NEGATIVE (NEGATIVE)
[2021-04-21 05:16] LABS: BARBITURATES NEG (NEG); BENZODIAZEPINES POS (NEG); BILIRUBIN,URINE NEG (NEG); CANNABINOIDS POS (NEG); CLARITY,URINE CLOUDY; COCAINE NEG (NEG); COLOR,URINE YELLOW; GLUCOSE,URINE NEG (NEG); METHADONE NEG (NEG); OPIATES POS (NEG); PHENCYCLIDINE NEG (NEG)
[2021-04-21 05:17] LABS: AMORPHOUS SEDIMENT,UR PRESENT /HPF; BACTERIA,URINE 0 /HPF (0-FEW); NITRITE,URINE NEG (NEG); RBC,URINE OCC /HPF (0-2); SQUAMOUS EPITHELIAL CELL,UR OCC /LPF; WBC,URINE 0 /HPF (0-4)
[2021-04-21 05:19] LABS: AMPHETAMINE/METHAMPHETAMINE POS (NEG)
--- NOTE | 2021-04-21 05:53 | RAD ---
CT OF THE ABDOMEN AND PELVIS WITH IV CONTRAST. History: Reason: in tractable vomiting and pain Comparison:None. Procedure: Contiguous axial images of the abdomen and pelvis were performed after the administration of 75 cc o f Omni 300 IV contrast. Oral contrast: Yes. Findings: Liver: Unremarkable Spleen: Unremarkable Pancreas: Unremarkable Adrenal Glands: Unremarkable Kidneys: Unremarkable There is no mass or lymphadenopathy. There is no free air. There is no free fluid. The urinary bladder is not fully distended. Apparent mild wall thickening is likely hypertrophy. The appendix is not well seen. The colon is collapsed and not well evaluated. There are few metallic densities in the abdomen which could be postsurgical clips. There has been beau or fusion of the lower lumbar spine. Impression: No acute findings. End Impression PQRS Compliance Statement: One or more of the following individualized dose reduction techniques were utilized for this examinat ion: 1. Automated exposure control 2. Adjustment of the mA and/or kV according to patient size 3. Use of iterative reconstruction technique Electronically signed by: Parish Garza III, MD (04/21/2021 5:51 AM) [facility]
[2021-04-21 05:54] VITALS: BP 146/51
[2021-04-21] MEDS ORDERED: ONDA4TAB7 PO ×2 (06:13→06:21)
== END 2021-04-21 06:20 | disposition home or self-care (01) ==
LOC: ER 01:17
DX: S01.01XA Laceration without foreign body of scalp, initial encounter (principal); R11.15 Cyclical vomiting syndrome unrelated to migraine; F19.10 Other psychoactive substance abuse, uncomplicated; F15.10 Other stimulant abuse, uncomplicated; F12.10 Cannabis abuse, uncomplicated; F11.10 Opioid abuse, uncomplicated; J44.9 Chronic obstructive pulmonary disease, unspecified; F20.9 Schizophrenia, unspecified; F31.9 Bipolar disorder, unspecified; F41.9 Anxiety disorder, unspecified; F17.200 Nicotine dependence, unspecified, uncomplicated; Z20.822 Contact with and (suspected) exposure to COVID-19; X58.XXXA Exposure to other specified factors, initial encounter; Y93.K1 Activity, walking an animal; Y92.89 Other specified places as the place of occurrence of the external cause; Y99.8 Other external cause status
CPT/HCPCS: 36415; 70450; 72125; 74022; 74177; 80048; 80076; 80307; 81001; 82550; 83690; 84484; 85025; 85610; 85730; 87426; 87804; 93005; 96361; 96374; 96375; 99285; C9803; G0480; J0780; J1200; J2405; J3490; J7120; Q9966; Q9967; U0003